=== PATIENT | male | born 1980 | race Caucasian/White ===

== ENCOUNTER 2022-03-28 11:13 | Emergency (ER) | payer OTHER ==
[~2022-03-28 11:13] MED LIST: AUGMENTIN 500-1 EACH PO
[2022-03-28 12:11] LABS: BASOPHIL 0.5 % (0-2); EOSINOPHIL 1.2 % (0-5); HCT 38.7 % (42.0-52.0); HGB 13.2 g/dl (13.2-18.0); LYMPHOCYTE 14.3 % (15-48); MCH 30.8 pg (25.0-31.0); MCHC 34.1 g/dL (32.0-36.0); MCV 90.2 fL (78.0-100.0); MONOCYTE 8.3 % (0-12); MPV 9.8 fL (6.0-9.5); NEUTROPHIL 75.3 % (41-80); NRBC 0; PLT 177 K/uL (150-400); RBC 4.29 M/uL (4.70-6.00); RDW 14.6 % (11.5-14.0); WBC 8.3 K/uL (4.0-10.5)
[2022-03-28 12:17] LABS: INR 0.98 (0.9-1.2); PROTHROMBIN TIME 12.7 SECONDS (11.9-13.9); PTT 26.8 SECONDS (24.9-34.6)
[2022-03-28 12:34] LABS: ALKALINE PHOSHATASE 70 U/L (46-116); ALT 32 U/L (16-63); AST 24 U/L (15-37); BILIRUBIN - TOTAL 0.3 mg/dL (0.2-1.0); BUN 14 mg/dL (7-18); BUN/CREAT RATIO (CALC) 14.3 RATIO; CHLORIDE 102 mmol/L (98-107); CO2 (BICARBONATE) 24 mmol/L (21-32); CREATININE 0.98 mg/dL (0.67-1.17); GLOBULIN (CALCULATION) 3.7 g/dL; GLUCOSE 94 mg/dL (74-106); POTASSIUM 3.6 mmol/L (3.5-5.1); TOTAL PROTEIN 7.7 g/dL (6.4-8.2)
[2022-03-28 13:13] LABS: CORONAVIRUS 2019 SARS-COV-2 NEGATIVE (NEGATIVE); INFLUENZA A NAA NEGATIVE (NEGATIVE)
== END 2022-03-28 17:15 | disposition home or self-care (01) ==
LOC: FER 11:13
PROVIDERS: Emergency Medicine; Nurse Practitioner Family
DX: R07.89 Other chest pain (principal); I10 Essential (primary) hypertension; E78.5 Hyperlipidemia, unspecified; Z20.822 Contact with and (suspected) exposure to COVID-19; Z87.891 Personal history of nicotine dependence; Z79.899 Other long term (current) drug therapy
CPT/HCPCS: 36415; 71045; 80053; 84484; 85025; 85610; 85730; 93005; J7030; U0002